=== PATIENT | female | born 1960 | race Caucasian/White ===

== ENCOUNTER 2018-01-03 12:43 | Day surgery (SDC) | payer BC ==
[2018-01-03] MEDS ORDERED: FENTAnyl 50 MCG/ML VIAL (14:38)
[2018-01-03] MEDS ORDERED: MIDAZOLAM 1 MG/ML 2 ML INJ (14:38)
== END 2018-01-03 15:56 | disposition home or self-care (01) ==
LOC: GIL 12:43
DX: K92.1 Melena (principal); K64.8 Other hemorrhoids
CPT/HCPCS: 45380; 88305